=== PATIENT | male | born 1970 | race Asian ===

== ENCOUNTER 2025-03-17 06:26 | Day surgery (SDC) | payer OTHER, SELFPAY ==
[2025-03-17 07:04] VITALS: BP 141/95; PULSE 61; RESP 16; TEMP 36.2; O2SAT 98
--- NOTE | 2025-03-17 07:17 | PM.HP.IH.1 ---
History of Present Illness History of Present Illness Date Patient Seen: 03/17/25 Time Patient Seen: 07:17 Chief complaint: Colonoscopy Narrative: 54yo M, c/o change in bowel habits, presents this morning for screening colonoscopy [facility] Medical History Shingles Hypertension Hyperlipemia Family History Father Hypertension Heart disease Uncle Heart disease Uncle Heart disease Social History marital status: details: self-employeed household members: spouse lives independently: Yes occupational status: employed Smoking Status: Never smoker alcohol intake: never Meds Home Medications and Allergies Home Medications ?Medication ?Instructions ?Recorded ?Confirmed ?Type cholecalciferol (vitamin D3) 50 50 mcg PO DAILY 02/08/25 03/17/25 History mcg (2,000 unit) capsule lactobacillus combination no.9 PO 02/08/25 02/08/25 History [Adult 50 Plus Probiotic] Held on 03/17/25. Instructions: not taking loratadine 10 mg tablet 10 mg PO DAILY 02/08/25 03/17/25 History multivitamin 1 tab PO DAILY 02/08/25 03/17/25 History omega-3 fatty acids 1,000 mg 2,000 mg PO DAILY 02/08/25 03/17/25 History capsule propranolol 10 mg tablet 10 mg PO BID 02/08/25 03/17/25 History rosuvastatin 40 mg tablet 40 mg PO DAILY 02/08/25 03/17/25 History sertraline 50 mg tablet 50 mg PO DAILY 02/08/25 03/17/25 History sodium,potassium,mag sulfates 17.5 See Rx Instructions PO .COMPLEX 02/10/25 Rx gram-3.13 gram-1.6 gram oral soln #354 mL (Suprep Bowel Prep Kit) sodium,potassium,mag sulfates 17.5 See Rx Instructions PO .COMPLEX 02/10/25 03/17/25 Rx gram-3.13 gram-1.6 gram oral soln #354 mL (Suprep Bowel Prep Kit) Allergies Allergy/AdvReac Type Severity Reaction Status Date / Time No Known Drug Allergies Allergy Unverified 06/04/25 10:23 Exam Vital Signs (past 8 hours): - 03/17/25 07:04 Temperature 97.2 F L Pulse Rate 61 Respiratory Rate 16 Blood Pressure 141/95 H Pulse Oximetry 98 Oxygen Delivery Method Room Air Oxygen Delivery Method Room Air Const General: healthy appearing and comfortable Orientation: alert and oriented x3 Eyes Visual Rahman: normal visual rahman by confrontation Conjunctivae: conjunctivae normal Sclera: sclerae normal EOM: EOM intact bilaterally Resp Effort & Inspection: normal respiratory effort Cardio Rate: regular rate Rhythm: regular rhythm GI Palpation: soft (nontender) Extrem Other: Without pitting edema Assessment & Plan Assessment and plan (1) Change in bowel habits: Status: Acute Assessment & Plan narrative: Plan screening colonoscopy, possible polypectomy. The risks, benefits and options regarding the procedure were explained to the patient in detail. Risk discussion included but not limited to: perforation, bleeding, missed lesion, inability to reach cecum. The patient was encouraged to ask questions and they were answered to their satisfaction. The patient understands and is agreeable to proceed. Time-Based Coding :: [TOTAL MINUTES] spent with patient and on the chart (including review of chart, obtaining history, exam, reviewing outside data, placing orders, documenting exam and treatment plan, and counseling patient) on [DATE]. PROFEE Pulmonary Disease Specialist Document charge(s): Yes Charge Codes Inpatient/observation care including admit and discharge same day: [id number]
[2025-03-17] MEDS: LACTATED RINGERS 1,000 ML 42 ML IV (07:20)
[2025-03-17 08:13] VITALS: BP 114/76; PULSE 65; RESP 14; TEMP 36.2; O2SAT 97
--- NOTE | 2025-03-17 08:16 | P.OP.COLON_ITS ---
Operative Date/Time/Diagnoses Date of procedure: 03/17/25 Time of procedure: 08:16 Pre-op diagnosis: Change in bowel habits Post-op diagnosis: same Procedure & Clinicians Study performed: Colonoscopy Same procedure(s) as scheduled: Yes Indications: 54yo M, change in bowel habits, need for screening colonosocpy Surgeon: Naveed Villalpando Anesthesia Type: MAC +/- Procedure Notes SCOAP/Timeout: Performed Procedure in detail: Patient placed in left lateral recumbent position. Time out was performed. Procedural sedation was administered by anesthesia. Examination began with a thorough inspection of the perianal area. There was no evidence of fissures, fistulae, external hemorrhoids or cutaneous malignancy. The colonoscope was then placed into the rectum and the lumen was insufflated with carbon dioxide. The scope was carefully advanced forward. Ultimately the cecum was intubated and confirmed by identification of the ileocecal valve, the appendiceal orifice and the confluence of the taenia. The scope was then slowly withdrawn examining the colon thoroughly in all directions. In the rectum, retroflexion of the scope was performed for inspection of the distal rectum and anal canal. ?The colonoscopy was notable for the following: ?1. Quality of the preparation-good, [place] 2-3, many seeds ?2. Normal exam, no polyps, no masses, no diverticuli; f/u exam 10 years Sedation minutes: 8 Specimen(s): none sent Complications: none Impression: Normal screening colonoscopy Next exam in 10 years Post-procedure Recommendations: Colonoscopy in 10 years Follow up: as needed Disposition: PACU
[2025-03-17 08:21] VITALS: BP 128/85; PULSE 67; RESP 13; O2SAT 100
[2025-03-17 08:28] VITALS: BP 128/90; PULSE 59; RESP 14; TEMP 36.2; O2SAT 100
[2025-03-17 08:31] VITALS: BP 132/99; PULSE 57; RESP 23; O2SAT 98
== END 2025-03-17 08:39 | disposition home or self-care (01) ==
PROVIDERS: PCP Family Medicine; Referring Provider Surgery; Visit Provider Surgery
PROC: 0DJD8ZZ Inspection of Lower Intestinal Tract, Via Natural or Artificial Opening Endoscopic (ICD-10-PCS; CPT 45378; principal; 2025-03-17 07:45)
DX: R19.4 Change in bowel habit (principal)
CPT/HCPCS: 45378; J2704